=== PATIENT | male | born 2000 | race Hispanic/Latino ===

== ENCOUNTER 2018-11-02 19:15 | Emergency (ER) | payer OTHER ==
[2018-11-02] MEDS ORDERED: ACETAMINOPHEN EXTRA STRENGTH 500 MG TABLET ONE (19:32)
[2018-11-02 20:03] LABS: RAPID GROUP A STREP NEGATIVE (NEGATIVE)
[2018-11-02] MEDS ORDERED: OSELTAMIVIR PHOSPHATE 75 MG CAP ONE (20:10)
== END 2018-11-02 20:20 | disposition home or self-care (01) ==
LOC: EDH 19:15
DX: J10.1 Influenza due to other identified influenza virus with other respiratory manifestations (principal); B85.0 Pediculosis due to Pediculus humanus capitis
CPT/HCPCS: 87804; 87880